=== PATIENT | female | born 1975 | race Caucasian/White ===

== ENCOUNTER 2019-01-01 10:35 | Inpatient (IN) | payer MEDICAID ==
[~2019-01-01] VITALS: Ht 160 cm; Wt 61.7 kg
[~2019-01-01 10:35] MED LIST: LACTATED RINGERS 1,000 ML IV SCH
[2019-01-01] MEDS ORDERED: BUPIVACAINE HCL/PF 0.5% (5MG/ML) 10ML ONE (12:41)
[2019-01-01] MEDS ORDERED: LIDOCAINE HCL 1% 20ML VIAL (Pyxis) INJ ONE (12:41)
[2019-01-01] MEDS ORDERED: SKIN ADHESIVE 0.7 GM EA TOP ONE (12:41)
[2019-01-01] MEDS ORDERED: BACITRACIN 50,000 UNITS/VIAL ONE (12:42)
[2019-01-01] MEDS ORDERED: INDOCYANINE GREEN 25 MG VIAL IV ONE (12:43)
[2019-01-01 12:56] LABS: UCG SCREEN NEGATIVE
[2019-01-01] MEDS ORDERED: FISH PO (13:13)
[2019-01-01] MEDS ORDERED: VITA400C19 PO (13:13)
[2019-01-01] MEDS ORDERED: OMEP40CA34 PO (13:13)
[2019-01-01] MEDS ORDERED: ASCO-339 PO (13:13)
[2019-01-01] MEDS ORDERED: FENTANYL CITRATE/PF 50MCG/ML 2ML VIAL ONE ×2 (13:15→14:24)
[2019-01-01] MEDS ORDERED: ROCURONIUM BROMIDE 10MG/ML VIAL 5ML IV ONE ×2 (13:15→14:25)
[2019-01-01] MEDS ORDERED: MIDAZOLAM HCL 2 MG/2 ML VIAL ONE (13:16)
[2019-01-01] MEDS ORDERED: PROPOFOL 200MG/20ML VIAL IV ONE (13:16)
[2019-01-01] MEDS ORDERED: GLYCOPYRROLATE 0.2 MG/ML 2ML VIAL ONE ×3 (13:16→15:52)
[2019-01-01] MEDS ORDERED: NEOSTIGMINE METHYLSULFATE 1MG/ML 10 ML VIAL ONE (13:16)
[2019-01-01] MEDS ORDERED: DEXAMETHASONE 4MG/ML 1ML VIAL ONE (14:11)
[2019-01-01] MEDS ORDERED: ONDANSETRON HCL 4MG/2ML INJ ONE (14:11)
[2019-01-01] MEDS ORDERED: MEPERIDINE HCL/PF 25MG/ML CPJ IV PRN (15:00)
[2019-01-01] MEDS ORDERED: LABETALOL 5MG/ML SYR 20 MG/4 ML SYRINGE IV PRN (15:00)
[2019-01-01] MEDS: HYDROMORPHONE HCL/PF 2MG/ML CPJ IV PRN ×3 (16:13→18:36)
[2019-01-01] MEDS ORDERED: SODIUM CHLORIDE 0.45% 1,000 ML IV SCH (17:00)
[2019-01-01] MEDS: ONDANSETRON HCL 4MG/2ML INJ IV PRN ×2 (18:36→23:34)
[2019-01-01 19:30] VITALS: BP 110/61
[2019-01-01 20:00] VITALS: BP 110/61
[2019-01-01] MEDS: KETOROLAC 30MG/ML VIAL IV SCH (22:45)
[2019-01-02] VITALS: BP 99/49
[2019-01-02 04:00] VITALS: BP 100/49
[2019-01-02] MEDS: KETOROLAC 30MG/ML VIAL IV SCH ×2 (04:20→10:00)
[2019-01-02 08:00] VITALS: BP 110/53
[2019-01-02] MEDS: ONDANSETRON HCL 4MG/2ML INJ IV PRN ×2 (09:03→14:10)
[2019-01-02] MEDS: HYDROMORPHONE HCL/PF 2MG/ML CPJ IV PRN ×2 (09:05→14:11)
[2019-01-02 14:43] VITALS: BP 139/59
== END 2019-01-02 15:03 | disposition home or self-care (01) | DRG 263 ==
LOC: OR 10:35 → 6EST 19:15
PROVIDERS: ADMIT Specialist; ATTEND Specialist
PROC: 0FT44ZZ Resection of Gallbladder, Percutaneous Endoscopic Approach (ICD-10-PCS; principal; 2019-01-01)
PROC: 8E0W4CZ Robotic Assisted Procedure of Trunk Region, Percutaneous Endoscopic Approach (ICD-10-PCS; 2019-01-01)
DX: K80.20 Calculus of gallbladder without cholecystitis without obstruction (principal); F17.200 Nicotine dependence, unspecified, uncomplicated; K82.8 Other specified diseases of gallbladder; Z98.51 Tubal ligation status; Z79.899 Other long term (current) drug therapy
CPT/HCPCS: 81025; 88304; J1100; J1170; J1885; J2250; J2405; J2704; J2710; J3010; J3490; Q9957